=== PATIENT | male | born 1965 | race Caucasian/White ===

== ENCOUNTER 2020-04-04 06:02 | Day surgery (SDC) | payer OTHER, SELFPAY ==
[2020-03-29 14:32] VITALS: BMI 31.1
--- NOTE | 2020-04-01 12:47 | MHC.SHP ---
Pre-Procedural Eval Section A The patient is an INPATIENT: No The History & Physical has been completed within 30 days and I have reviewed it.: Yes Section B Chief Complaint: Cataract right eye Allergies: Allergies Allergy/AdvReac Type Severity Reaction Status Date / Time No Known Allergies Allergy Verified 03/29/20 14:31 Plan Diagnosis/Plan: Unchanged Patient has been examined and remains a candidate for the planned procedure
--- NOTE | 2020-04-01 13:19 | HO.ANESPROP2 ---
Documented by User: Ilda Reyes 04/01/20 13:21 HPI - Anesthesia Eval Consult details Narrative: 54yo M for Cataract PCP Cleared [facility] Past Medical History Medical History History of back pain Hx of herpes simplex infection BLACK (nonalcoholic steatohepatitis) Transaminitis Surgical History Surgical History Hx of colonoscopy Social History Social History Smoking Status: Never smoker Use of substances other than those prescribed or required for medical reasons: No Advance Directives: No Advance Directives Information Provided: No Advance Directives on File: No Meds Allergies Allergy/AdvReac Type Severity Reaction Status Date / Time No Known Allergies Allergy Verified 03/29/20 14:31 Home Medications Medication Instructions Recorded Confirmed Type No Known Home Meds 03/29/20 03/29/20 History Exam Exam Date and Time: April 01, 2020 1319 Height,Weight and Vital Signs: Height 5 ft 8 in Weight 92.986 kg Narrative Narrative: EKG 03/15/20: NSR Assessment and Plan Assessment Anesthesia Assessment: Chart Reviewed Documented by User: Teresa Hager 04/04/20 07:11 [facility] Past Medical History Medical History History of back pain Hx of herpes simplex infection BLACK (nonalcoholic steatohepatitis) Transaminitis Surgical History Surgical History Hx of colonoscopy Social History Social History Smoking Status: Never smoker Use of substances other than those prescribed or required for medical reasons: No Advance Directives: No Advance Directives Information Provided: No Advance Directives on File: No Meds Allergies Allergy/AdvReac Type Severity Reaction Status Date / Time No Known Allergies Allergy Verified 03/29/20 14:31 Home Medications Medication Instructions Recorded Confirmed Type No Known Home Meds 03/29/20 03/29/20 History Exam Airway Mallampati Class: II TM Dist: >3cm Neck ROM: Full Heart: RRR Lungs: CTA BL Assessment and Plan Assessment Anesthesia Assessment: Anesthesia Plan Discussed and Chart Reviewed Final Anesthetic Review NPO: Yes ASA Class: II Final Preanesthetic Review: Meds/Marc Chart Reviewed and Consent Obtained/Reviewed Patient Risk: Low Procedure Risk: Low Anesthetic Plan Anesthetic Plan: MAC: Disposition: Standard PACU
[2020-04-04 06:34] VITALS: BP 142/79; PULSE 75; RESP 18; TEMP 36.1; O2SAT 99
[2020-04-04] MEDS: Tetracaine HCl/PF 0.5% Oph Sol 4 ML DROPS 1 DROP EYE-RIGHT (06:49)
[2020-04-04] MEDS: Tropicamide 1 % Ophth Sol 3 ML BTL 1 DROP EYE-RIGHT ×3 (06:50→07:01)
[2020-04-04] MEDS: Lactated Ringers 500 ML 50 ML IV (06:51)
--- NOTE | 2020-04-04 07:20 | P.CONAN_ITS ---
[facility] Past Medical History Medical History History of back pain Hx of herpes simplex infection BLACK (nonalcoholic steatohepatitis) Transaminitis Surgical History Surgical History Hx of colonoscopy Social History Social History Smoking Status: Never smoker Use of substances other than those prescribed or required for medical reasons: No Advance Directives: No Advance Directives Information Provided: No Advance Directives on File: No Meds Allergies Allergy/AdvReac Type Severity Reaction Status Date / Time No Known Allergies Allergy Verified 03/29/20 14:31 Home Medications Medication Instructions Recorded Confirmed Type No Known Home Meds 03/29/20 03/29/20 History Exam Exam Date and Time: April 04, 202020 Height,Weight and Vital Signs: Height 5 ft 8 in Weight 92.986 kg Last Vital Signs Temp 97 F 04/04/20 06:34 Pulse 75 04/04/20 06:34 Resp 18 04/04/20 06:34 BP 142/79 H 04/04/20 06:34 Pulse Ox 99 04/04/20 06:34
--- NOTE | 2020-04-04 07:55 | HO.PNOPHT ---
Ophthalmology Procedure Procedure Ophthalmology Viscoelastic: Healon Duet Dual Pack Pro Ophthalmology Lenses: TECNIS [id number] (22) Procedure Notes: PREOPERATIVE DIAGNOSIS: Decreased visual acuity right eye secondary to cataract POSTOPERATIVE DIAGNOSIS: Same PROCEDURE: Right cataract extraction with multifocal intraocular lens insertion SURGEON: Pasha Liu M.D. ANESTHESIA: Topical/MAC ESTIMATED BLOOD LOSS: None COMPLICATIONS: None After obtaining informed consent, the patient was brought to the operating room suite and placed in the supine position. After adequate sedation per anesthesia, topical drops of Tetracaine were given to the right eye. The eye was then prepped and draped in the usual sterile fashion. The operating room microscope was then positioned over the operative eye and a lid speculum placed. A paracentesis was created. Viscoelastic was then instilled into the anterior chamber. A three plane incision was then created temporally, utilizing a 2.85 mm keratome. Capsulotomy forceps were then utilized to create a circular tear capsulotomy. Hydrodissection and hydrodelineation were carried out until adequate mobilization of the nucleus occurred. Phacoemulsification was then utilized to remove the dense central nucleus followed by removal of the cortical material utilizing the automated aspiration irrigation unit. Viscoelastic was instilled into the posterior capsular bag followed by placement of a multifocal posterior chamber intraocular lens without difficulty. The residual Viscoelastic was then removed utilizing the automated IA machine. The wound was checked and found to be watertight. The patient tolerated the procedure well and the lid speculum was removed. Intracameral injection of Vigamox 0.1 mL followed by a subtenon injection of Kenalog-40 0.2 mL were administered. The patient will be seen in the a.m.
== END 2020-04-04 08:30 | disposition home or self-care (01) ==
PROVIDERS: PCP Internal Medicine; Visit Provider Ophthalmology
PROC: (CPT 66984; principal; 2020-04-04 07:30)
DX: H25.11 Age-related nuclear cataract, right eye (principal); H54.7 Unspecified visual loss; H52.4 Presbyopia
CPT/HCPCS: 66984; J2250; J3010; J3300; V2788

== ENCOUNTER 2020-04-18 06:02 | Day surgery (SDC) | payer OTHER, SELFPAY ==
--- NOTE | 2020-04-14 08:06 | MHC.SHP ---
Pre-Procedural Eval Section A The patient is an INPATIENT: No The History & Physical has been completed within 30 days and I have reviewed it.: Yes Section B Chief Complaint: Cataract Left eye Allergies: Allergies Allergy/AdvReac Type Severity Reaction Status Date / Time No Known Allergies Allergy Verified 03/29/20 14:31 Plan Patient has been examined and remains a candidate for the planned procedure
[2020-04-14 09:45] VITALS: BMI 31.1
--- NOTE | 2020-04-15 08:34 | MHC.SHP ---
Pre-Procedural Eval Section A The patient is an INPATIENT: No Section B Chief Complaint: Cataract Left eye Details of Present Illness: 54yo M with traumatic cataract OU c/o difficulty seeing at night when roads are wet, vision fades in and out at times, squinting. Relevant Family History (Specify if Yes): No Relevant Social History: None Present Medications: see Short Stay Collaborative assessment Medical History: Significant History (See anesthesia collab) History of Previous Operations: Relevant previous surgery/procedure and date(s) (Right eye cataract 04/04/20) Allergies: Allergies Allergy/AdvReac Type Severity Reaction Status Date / Time No Known Allergies Allergy Verified 03/29/20 14:31 Plan Patient has been examined and remains a candidate for the planned procedure
--- NOTE | 2020-04-15 08:40 | HO.ANESPROP2 ---
Documented by User: Ilda Reyes 04/15/20 14:00 HPI - Anesthesia Eval Consult details Narrative: 54yo M for Left eye cataract 1st eye 04/04: Fentanyl 50, Midaz 2 PCP cleared, Anesthesia to do Pre-Op surgical eval per Dr Ardon [facility] Past Medical History Medical History History of back pain Hx of herpes simplex infection BLACK (nonalcoholic steatohepatitis) Transaminitis Surgical History Surgical History Cataract extraction status of right eye Hx of colonoscopy Social History Social History Smoking Status: Never smoker Advance Directives: No Meds Allergies Allergy/AdvReac Type Severity Reaction Status Date / Time No Known Allergies Allergy Verified 03/29/20 14:31 Home Medications Medication Instructions Recorded Confirmed Type No Known Home Meds 03/29/20 04/14/20 History Exam Exam Date and Time: April 15, 2020 0840 Height,Weight and Vital Signs: Height 5 ft 8 in Weight 92.986 kg Assessment and Plan Assessment Anesthesia Assessment: Chart Reviewed Documented by User: eTresa Hager 04/18/20 07:05 [facility] Past Medical History Medical History History of back pain Hx of herpes simplex infection BLACK (nonalcoholic steatohepatitis) Transaminitis Surgical History Surgical History Cataract extraction status of right eye Hx of colonoscopy Social History Social History Smoking Status: Never smoker Advance Directives: No Meds Allergies Allergy/AdvReac Type Severity Reaction Status Date / Time No Known Allergies Allergy Verified 03/29/20 14:31 Home Medications Medication Instructions Recorded Confirmed Type No Known Home Meds 03/29/20 04/14/20 History Exam Airway Mallampati Class: II TM Dist: >3cm Neck ROM: Full Heart: RrR Lungs: CTA BL Assessment and Plan Assessment Anesthesia Assessment: Anesthesia Plan Discussed and Chart Reviewed Final Anesthetic Review NPO: Yes ASA Class: II Final Preanesthetic Review: No Changes in Pt Med Stat and Consent Obtained/Reviewed Patient Risk: Low Procedure Risk: Low Anesthetic Plan Anesthetic Plan: MAC: Disposition: Standard PACU
[2020-04-18] MEDS: Moxifloxacin HCl 0.5 % Oph Sol 3 ML DRPBTL 1 DROP EYE-LEFT (06:28)
[2020-04-18] MEDS: Tetracaine HCl/PF 0.5% Oph Sol 4 ML DROPS 1 DROP EYE-LEFT (06:29)
[2020-04-18] MEDS: Tropicamide 1 % Ophth Sol 3 ML BTL 1 DROP EYE-LEFT ×3 (06:31→06:52)
--- NOTE | 2020-04-18 07:50 | HO.PNOPHT ---
Ophthalmology Procedure Procedure Ophthalmology Viscoelastic: Can Eric Dual Pack Pro Ophthalmology Lenses: TECNIS [id number] (22) Procedure Notes: PREOPERATIVE DIAGNOSIS: Decreased visual acuity left eye secondary to cataract POSTOPERATIVE DIAGNOSIS: Same PROCEDURE: Left cataract extraction with multifocal intraocular lens insertion SURGEON: Pasha Liu M.D. ANESTHESIA: Topical/MAC ESTIMATED BLOOD LOSS: None COMPLICATIONS: None After obtaining informed consent, the patient was brought to the operation room suite and placed in the supine position. After adequate sedation per anesthesia, topical drops of Tetracaine were given to the left eye. The eye was then prepped and draped in the usual sterile fashion. The operating room microscope was then positioned over the operative eye and a lid speculum placed. A paracentesis was created. Viscoelastic was then instilled into the anterior chamber. A three plane incision was then created temporally, utilizing a 2.85 mm keratome. Capsulotomy forceps were then utilized to create a circular tear capsulotomy. Hydrodissection and hydrodelineation were carried out until adequate mobilization of the nucleus occurred. Phacoemulsification was then utilized to remove the dense central nucleus followed by removal of the cortical material utilizing the automated aspiration irrigation unit. Viscoelastic was instilled into the posterior capsular bag followed by placement of a multifocal posterior chamber intraocular lens without difficulty. The residual Viscoelastic was then removed utilizing the automated IA machine. The wound was check and found to be watertight. The patient tolerated the procedure well and the lid speculum was removed. Intracameral injection of Vigamox 0.1 mL followed by a subtenon injection of Kenalog-40 0.2 mL were administered. The patient will be seen in the a.m.
[2020-04-18 07:54] VITALS: BP 131/84; PULSE 60; RESP 18; TEMP 36.1; O2SAT 100
== END 2020-04-18 08:11 | disposition home or self-care (01) ==
PROVIDERS: PCP Internal Medicine; Visit Provider Ophthalmology
PROC: (CPT 66984; principal; 2020-04-18 07:30)
DX: H25.12 Age-related nuclear cataract, left eye (principal); H26.1 Traumatic cataract; H52.4 Presbyopia; K82.4 Cholesterolosis of gallbladder; R03.0 Elevated blood-pressure reading, without diagnosis of hypertension; E83.00 Disorder of copper metabolism, unspecified; R74.01 Elevation of levels of liver transaminase levels
CPT/HCPCS: 66984; J2250; J3010; J3300; V2788